=== PATIENT | male | born 1940 | race Caucasian/White ===

== ENCOUNTER 2016-10-02 07:21 | Outpatient (CLI) | payer MEDICARE, BC ==
[2016-10-02] MEDS ORDERED: REGADENOSON 0.4 MG/5 ML DISP.SYRIN IVP ONE (08:00)
== END 2016-10-02 23:59 | disposition home or self-care (01) ==
LOC: NM 07:21
PROVIDERS: ATTEND Internal Medicine Interventional Cardiology
DX: I25.10 Atherosclerotic heart disease of native coronary artery without angina pectoris (principal); Q21.0 Ventricular septal defect
CPT/HCPCS: 78452; A9502; J2785

== ENCOUNTER 2018-09-03 20:54 | Inpatient (IN) | payer MEDICARE, BC ==
[~2018-09-03] VITALS: Ht 182.9 cm; Wt 59.9 kg
[2018-09-03] MEDS ORDERED: ONDANSETRON HCL/PF 4 MG/2 ML VIAL ONE (21:08)
[2018-09-03] MEDS ORDERED: HYDROMORPHONE INJ 0.5 MG/0.5 ML SYRINGE ONE ×2 (21:08→23:52)
--- NOTE | 2018-09-03 21:09 | NUR ---
PHLEBOTOMY BEDSIDE FOR BLOOD DRAW Addendum: 09/03/18 at 2348 by EL Amendment undone in EDM - 09/03/18 at 2348 by EL REPORT GIVEN TO MS CHUNG.
[2018-09-03 21:15] LABS: BASOPHILS % (AUTO) 0.5 % (0.0-2.0); EOSINOPHILS % (AUTO) 0.6 % (0.0-6.0); HEMATOCRIT 43 % (39-51); HEMOGLOBIN 14.5 g/dL (13.5-17.5); LYMPHOCYTES # (AUTO) 0.7 /CMM (0.8-4.8); MEAN CORPUSCULAR HGB CONC 34 g/dl (31.0-36.0); MEAN CORPUSCULAR VOLUME 103 fL (80-96); MONOCYTES # (AUTO) 0.8 /CMM (0.1-1.30); MONOCYTES % (AUTO) 8.1 % (2.0-12.0); NEUTROPHILS # (AUTO) 8.1 /CMM (1.8-8.9); NEUTROPHILS % (AUTO) 83.8 % (43.0-81.0); PLATELET COUNT (AUTO) 220 /CMM (150-450); RED BLOOD CELL COUNT(AUTO) 4.16 MIL/uL (4.5-6.0); WHITE BLOOD COUNT (AUTO) 9.7 K/uL (4.3-11.0)
--- NOTE | 2018-09-03 21:15 | NUR ---
[id number] FROM HOME C/C R HIP PAIN S/P MECHANICAL FALL AT HOME. - BACK,NECK,HEAD TRAUMA.-KO.NO OBVIOUS DEFORMITY,SHORTENING NOTED.FENTANYL 50MCG GIVEN. PT AAOX3, VSS. DENIES CP, SOB, DIZZINESS, N/V @ THIS TIME. PT SEEN & EVAL'D BY DR. MARKS. MEDICATED FOR PAIN PER ERMD ORDER. PLACED ON WINDOW MAKER. FAMILY @ BS & WILL CONT TO MONITOR.
[2018-09-03 21:25] LABS: CALCIUM, SERUM 9.8 mg/dL (8.5-10.1); CARBON DIOXIDE 27 mmol/L (21-32); CHLORIDE 100 mmol/L (98-107); CREATININE 0.8 mg/dL (0.6-1.3); GLUCOSE 102 mg/dL (74-106); POTASSIUM 3.9 mmol/L (3.5-5.1); SODIUM SERUM 137 mmol/L (136-145); UREA NITROGEN, BLOOD 19 mg/dL (7-18)
[2018-09-03] MEDS ORDERED: HYDROMORPHONE 1 MG/1 ML DISP.SYRIN IV ONE (21:30)
[2018-09-03] MEDS ORDERED: ONDANSETRON HCL/PF 4 MG/2 ML VIAL IV ONE (21:30)
--- NOTE | 2018-09-03 22:22 | NUR ---
PT AAOX3, PT STS PAIN STILL 10/10 BUT ABLE TO MOVE FROM SIDE TO SIDE. DENIES CP, SOB, DIZZINESS, N/V @ THIS TIME. RR EVEN & UNLABORED. WILL CONT TO MONITOR & @ BS.
--- NOTE | 2018-09-03 23:48 | NUR ---
CALLING REPORT TO TELE NURSE.
--- NOTE | 2018-09-03 23:50 | NUR ---
REPORT GIVEN TO CHASITY MADDEN
--- NOTE | 2018-09-03 23:55 | NUR ---
DR GOMES TO SPEAK TO Gloria JEREZ NP FOR ADMISSION.
[2018-09-03] MEDS: HYDROMORPHONE 1 MG/1 ML DISP.SYRIN IV PRN (23:56)
--- NOTE | 2018-09-03 23:56 | NUR ---
PT REC'D MEDICATION ORDERED.
[2018-09-04] VITALS (7 sets, daily range): BP systolic 136–180; BP diastolic 81–111
[2018-09-04] MEDS ORDERED: HYDROMORPHONE 1 MG/1 ML DISP.SYRIN IV ONE
[2018-09-04] MEDS ORDERED: Z GUARD REMEDY 2 OZ OINT TP PRN (00:30)
[2018-09-04] MEDS ORDERED: KETOROLAC TROMETHAMINE INJ 30 MG/ML VIAL IV PRN (00:30)
[2018-09-04] MEDS ORDERED: MAGNESIUM HYDROXIDE 30 ML UDC PO PRN (00:30)
[2018-09-04] MEDS ORDERED: HYDROCODONE/APAP 5/325MG 1 EACH TABLET PO PRN (00:30)
[2018-09-04] MEDS ORDERED: ENOXAPARIN SODIUM 40 MG/0.4 ML DISP.SYRIN SQ SCH (00:30)
[2018-09-04] MEDS ORDERED: ZOLPIDEM TARTRATE 5 MG TABLET PO PRN (00:30)
[2018-09-04] MEDS ORDERED: ACETAMINOPHEN 325 MG TABLET PO PRN (00:30)
--- NOTE | 2018-09-04 00:30 | NUR ---
MS-1/COMPUTER OPERATIONS TECHNICIAN ADMISSION ASSESSMENT COMPLETE. SKIN ASSESSMENT COMPLETE. PT REFUSING PHOTOS AT THIS TIME DUE TO PAIN. PT ORIENTED TO ROOM AND CALL LIGHT USE. WILL CONTINUE TO MONITOR.
--- NOTE | 2018-09-04 01:45 | NUR ---
MS-1/UROLOGY PHYSICIAN ASSISTANT EID CATH 16 ESTONIAN PLACED VIA STERILE PROCEDURE. PT TOLERATED WELL.
[2018-09-04] MEDS: HYDROCODONE/APAP 10/325MG 1 EA TABLET PO PRN ×5 (02:03→20:23)
[2018-09-04] MEDS: HYDROMORPHONE INJ 0.5 MG/0.5 ML SYRINGE IV PRN ×4 (03:12→17:48)
--- NOTE | 2018-09-04 03:22 | NUR ---
MS-1/MAINTENANCE MECHANIC ENGINE PT STILL COMPLAINING OF RIGHT HIP PAIN 05/22. LAINEY LOPEZ CALLED NEW ORDERS RECIEVED AND CARRIED OUT.
[2018-09-04] MEDS: IV D5/ 0.9% NACL 1,000 ML IV PRN ×2 (05:28→20:23)
--- NOTE | 2018-09-04 06:15 | NUR ---
MS-1/RADIOLOGIC TECHNOLOGIST CHIEF PT NOTED WITH DRIED BLOOD AROUND THE URETHRA AND SCROTUM POST EID CATH PLACEMENT. ALSO PT IS STILL EXPERIENCING 10/10 PAIN. NO RELIEF FROM MEDICATION. LAINEY LOPEZ NOTIFIED AWAITING CALL BACK.
[2018-09-04] MEDS: NICOTINE PATCH (7MG) 7 MG PATCH.TD24 TD SCH (08:15)
--- NOTE | 2018-09-04 08:15 | NUR ---
MS RN INITIAL NOTES Patient in bed, reports right hip pain. IVF infusing, stable oxygen saturation on RA. Maintained safety, will medicate patient with pain medication. Will cont to monitor.
[2018-09-04] MEDS: methylPREDNISolone SOD SUCC 125 MG/2ML VIAL IV SCH ×2 (10:12→16:38)
[2018-09-04] MEDS: IPRATROPIUM NEB FS 0.5 MG/2.5 ML AMPUL.NEB NEB SCH ×3 (11:22→19:56)
[2018-09-04] MEDS: ALBUTEROL HALF STRENGTH 1.25 MG/3 ML VIAL.NEB NEB SCH ×3 (11:22→19:56)
[2018-09-04] MEDS: hydrALAZINE HCL IV 20 MG VIAL IV PRN ×2 (14:12→20:13)
--- NOTE | 2018-09-04 15:04 | NUR ---
TEXTED DR. FAM FOR MRI APPROVAL.
[2018-09-04] MEDS: ONDANSETRON HCL/PF 4 MG/2 ML VIAL IVP PRN (15:51)
--- NOTE | 2018-09-04 16:02 | NUR ---
Episode of emesis x1 large amount, coffee ground color. Maintained upright position, Zofran 4mg IV PRN given. Patient place on NPO status, GI to see patient for consult. Will cont to monitor.
--- NOTE | 2018-09-04 16:08 | NUR ---
RN NOTE: RECEIVED A CBC VERBAL ORDER FROM NICOLASA NOGUERA NP FOR TONIGHT AT 1800 FOR THE PATIENT. PRIMARY NURSE MADE AWARE. ORDER, NOTED AND CARRIED OUT.
[2018-09-04 16:21] LABS: BASOPHILS % (AUTO) 0.1 % (0.0-2.0); HEMATOCRIT 40 % (39-51); HEMOGLOBIN 13.4 g/dL (13.5-17.5); LYMPHOCYTES # (AUTO) 0.6 /CMM (0.8-4.8); LYMPHOCYTES % (AUTO) 5.1 % (20.0-44.0); MEAN CORPUSCULAR HGB CONC 34 g/dl (31.0-36.0); MEAN CORPUSCULAR VOLUME 103 fL (80-96); MONOCYTES # (AUTO) 0.6 /CMM (0.1-1.30); MONOCYTES % (AUTO) 4.9 % (2.0-12.0); NEUTROPHILS # (AUTO) 10.8 /CMM (1.8-8.9); NEUTROPHILS % (AUTO) 89.9 % (43.0-81.0); PLATELET COUNT (AUTO) 213 /CMM (150-450); WHITE BLOOD COUNT (AUTO) 12.1 K/uL (4.3-11.0)
[2018-09-04] MEDS: PANTOPRAZOLE 40 MG VIAL IV SCH (16:34)
[2018-09-04] MEDS ORDERED: OMEP40CA37 PO (18:23)
[2018-09-04] MEDS ORDERED: RANI150C4 PO (18:23)
[2018-09-04] MEDS ORDERED: HYDR-4354 PO (18:23)
[2018-09-04] MEDS ORDERED: SIMV20TA6 PO (18:23)
--- NOTE | 2018-09-04 19:41 | NUR ---
MS RN CLOSING NOTES Patient in bed, awake. Currently NPO status, IVF infusing, maintained at 100ml/hr. Denies nausea, vomiting resolved. Seen by by Ortho today, planned MRI spine wo contrast, pateint is aware. Maintained safety, endorsed to night RN.
--- NOTE | 2018-09-04 20:00 | NUR ---
RECEIVED PATIENT IN BED, a&o X2-3, FORGETFUL. PATIENT'S BP IS HIGH- PATIENT C/O LOT OF PAIN TO THE RIGHT HIP( S/POST FALL AT HOME).
--- NOTE | 2018-09-04 20:30 | NUR ---
HYDRALAZINE AND NORCO GIVEN PRN FOR HIGH BP AND PAIN MANAGEMENT. CONTINUE TO MONITOR
--- NOTE | 2018-09-04 22:10 | NUR ---
PATIENT PAIN LEVEL IS 4 WHICH ACCEPTABLE TO THE PATIENT GOAL LEVEL. BP IMPROVED. CONTINUE TO MONITOR
[2018-09-05] MEDS: HYDROMORPHONE INJ 0.5 MG/0.5 ML SYRINGE IV PRN ×2 (00:22→22:03)
[2018-09-05] MEDS: ONDANSETRON HCL/PF 4 MG/2 ML VIAL IVP PRN ×2 (00:23→08:19)
--- NOTE | 2018-09-05 00:25 | NUR ---
PATIENT C/O PAIN, MOANS AND HAS INTERRUPTIONS OF SLEEP, DILAUDID GIVEN ALONG WITH ZOFRAN CONTINUE TO MONITOR
--- NOTE | 2018-09-05 00:55 | NUR ---
PATIENT IS CALM AND SLEEPING
[2018-09-05] MEDS: ALBUTEROL HALF STRENGTH 1.25 MG/3 ML VIAL.NEB NEB SCH ×4 (01:30→20:04)
[2018-09-05] MEDS: IPRATROPIUM NEB FS 0.5 MG/2.5 ML AMPUL.NEB NEB SCH ×4 (01:30→20:04)
[2018-09-05] MEDS: HYDROCODONE/APAP 10/325MG 1 EA TABLET PO PRN ×2 (03:00→18:28)
[2018-09-05 04:00] VITALS: BP 140/84
[2018-09-05 04:53] VITALS: BP 140/84
[2018-09-05] MEDS: IV D5/ 0.9% NACL 1,000 ML IV PRN ×2 (05:44→18:09)
[2018-09-05 06:31] LABS: HEMATOCRIT 40 % (39-51); HEMOGLOBIN 13.4 g/dL (13.5-17.5); LYMPHOCYTES # (AUTO) 0.3 /CMM (0.8-4.8); LYMPHOCYTES % (AUTO) 2.4 % (20.0-44.0); MEAN CORPUSCULAR HGB CONC 34 g/dl (31.0-36.0); MEAN CORPUSCULAR VOLUME 102 fL (80-96); MONOCYTES # (AUTO) 0.9 /CMM (0.1-1.30); MONOCYTES % (AUTO) 7.3 % (2.0-12.0); NEUTROPHILS # (AUTO) 11.2 /CMM (1.8-8.9); NEUTROPHILS % (AUTO) 90.3 % (43.0-81.0); PLATELET COUNT (AUTO) 184 /CMM (150-450); RED BLOOD CELL COUNT(AUTO) 3.89 MIL/uL (4.5-6.0); WHITE BLOOD COUNT (AUTO) 12.4 K/uL (4.3-11.0)
[2018-09-05 06:41] LABS: CALCIUM, SERUM 9.1 mg/dL (8.5-10.1); CARBON DIOXIDE 29 mmol/L (21-32); CHLORIDE 96 mmol/L (98-107); CREATININE 0.9 mg/dL (0.6-1.3); GLUCOSE 150 mg/dL (74-106); MAGNESIUM 1.7 mg/dL (1.8-2.4); PHOSPHORUS 3.2 mg/dL (2.5-4.9); POTASSIUM 3.6 mmol/L (3.5-5.1); SODIUM SERUM 134 mmol/L (136-145); UREA NITROGEN, BLOOD 29 mg/dL (7-18)
[2018-09-05 06:42] LABS: CHOLESTEROL 94 mg/dL (<200); HDL CHOLESTEROL 50 mg/dL (40-60); LDL 42 mg/dL (0-99); TRIGLYCERIDES 49 mg/dL (30-150)
--- NOTE | 2018-09-05 07:00 | NUR ---
MS RN OPENING NOTES RECEIVED PT IN BED. MOANING AND COMPLAINING OF NAUSEA. A/OX2-3. ON ROOM AIR. NO S/SX OF RESP DISTRESS. IV IN PAPI INTACT WITH IV FLUIDS. EID CATH DRAINING CLEAR GAEL URINE. BED IN LOCKED/LOW POSITION. CALL LIGHT IN REACH. WILL CONT TO MONITOR.
[2018-09-05 08:00] VITALS: BP 122/86
[2018-09-05] MEDS: NICOTINE PATCH (7MG) 7 MG PATCH.TD24 TD SCH (08:18)
[2018-09-05] MEDS: PANTOPRAZOLE 40 MG VIAL IV SCH ×2 (08:18→16:07)
[2018-09-05] MEDS: methylPREDNISolone SOD SUCC 125 MG/2ML VIAL IV SCH ×2 (08:21→16:09)
--- NOTE | 2018-09-05 08:30 | NUR ---
MS RN NOTES PT VOMITED BLACK COLORED EMESIS. PER DR JOLLY, SEND TO LAB-GUAIAC TEST.
[2018-09-05] MEDS ORDERED: Magnesium 1GM/D5W 100ML PREMIX 100 ML IV SCH (10:53)
--- NOTE | 2018-09-05 11:00 | NUR ---
MS JUAN NOTES PER SNEHA, SHE WILL SEND SPECIMEN TO LAB. Addendum: 09/05/18 at 1954 by NICOLA BOOTH RN RE: EMESIS - BLACK COLOR
[2018-09-05] MEDS: HYDROMORPHONE 1 MG/1 ML DISP.SYRIN IV PRN ×2 (11:12→16:10)
[2018-09-05] MEDS: Magnesium 1GM/D5W 100ML PREMIX 100 ML IV SCH ×2 (11:12→13:12)
[2018-09-05 16:00] VITALS: BP_SYST 123; BP_SYST 150; BP_DIAS 62; BP_DIAS 94
--- NOTE | 2018-09-05 16:55 | NUR ---
MS RN NOTES DIMENSIONAL ENGINEER AND NURSE INTERVIEWED AND PATIENT REGARDING METAL IN PATIENTS BODY. CHECKLIST COMPLETED. PT LEFT FLOOR WITH TECHS AND AT BEDSIDE.
--- NOTE | 2018-09-05 19:00 | NUR ---
MS RN NOTES DR ARREOLA ROUNDING WITH PT. NOTIFIED OF BLACK COLORED EMESIS THIS AM. ASKED PT IF HE WOULD LIKE TO DO AN ENDOSCOPY. PT DEFERRED TO . WILL CALL . WILL FOLLOW UP.
--- NOTE | 2018-09-05 19:15 | NUR ---
MS RN NOTES REPORT GIVEN TO PM NURSE FOR LILLY. NURSE WILL FOLLOW UP WITH RE: ENDOSCOPY. PT HAS NO MORE EPISODES OF EMESIS. ALL NEEDS ATTENDED TO.
[2018-09-05 20:00] VITALS: BP 165/99
[2018-09-05] MEDS: hydrALAZINE HCL IV 20 MG VIAL IV PRN (23:43)
--- NOTE | 2018-09-06 00:05 | NUR ---
rn notes patient BP IS 173/97 HR98 . HYDRALAZINE 10MG HAS BEEN ADMINISTERED AND RECHECKED BP AFTER 20MIN AND BP WAS 168/95. ALL PRN PAIN MEDICATIONS ARE GIVEN AND PATIENT STILL COMPLAINT OF 10/10 RIGHT HIP PAIN.MERI RETANA NOTIFIED AND NO NEW ORDERS FOR NOW.
[2018-09-06] MEDS: HYDROCODONE/APAP 10/325MG 1 EA TABLET PO PRN ×2 (01:12→21:16)
[2018-09-06] MEDS: IPRATROPIUM NEB FS 0.5 MG/2.5 ML AMPUL.NEB NEB SCH ×4 (01:40→19:36)
[2018-09-06] MEDS: ALBUTEROL HALF STRENGTH 1.25 MG/3 ML VIAL.NEB NEB SCH ×4 (01:40→19:36)
[2018-09-06] MEDS: HYDROMORPHONE INJ 0.5 MG/0.5 ML SYRINGE IV PRN ×3 (03:36→16:34)
[2018-09-06 04:00] VITALS: BP 162/94
[2018-09-06] MEDS: IV D5/ 0.9% NACL 1,000 ML IV PRN ×2 (05:07→18:34)
[2018-09-06 06:32] LABS: BASOPHILS % (AUTO) 0.1 % (0.0-2.0); HEMATOCRIT 37 % (39-51); HEMOGLOBIN 12.8 g/dL (13.5-17.5); LYMPHOCYTES # (AUTO) 0.2 /CMM (0.8-4.8); LYMPHOCYTES % (AUTO) 2.9 % (20.0-44.0); MEAN CORPUSCULAR HGB CONC 35 g/dl (31.0-36.0); MEAN CORPUSCULAR VOLUME 102 fL (80-96); MONOCYTES # (AUTO) 0.6 /CMM (0.1-1.30); MONOCYTES % (AUTO) 7.9 % (2.0-12.0); NEUTROPHILS # (AUTO) 6.5 /CMM (1.8-8.9); NEUTROPHILS % (AUTO) 89.1 % (43.0-81.0); PLATELET COUNT (AUTO) 154 /CMM (150-450); RED BLOOD CELL COUNT(AUTO) 3.63 MIL/uL (4.5-6.0); WHITE BLOOD COUNT (AUTO) 7.3 K/uL (4.3-11.0)
[2018-09-06 06:39] LABS: CALCIUM, SERUM 9.1 mg/dL (8.5-10.1); CARBON DIOXIDE 28 mmol/L (21-32); CHLORIDE 100 mmol/L (98-107); CREATININE 0.8 mg/dL (0.6-1.3); GLUCOSE 119 mg/dL (74-106); POTASSIUM 3.7 mmol/L (3.5-5.1); SODIUM SERUM 136 mmol/L (136-145); UREA NITROGEN, BLOOD 25 mg/dL (7-18)
[2018-09-06 08:00] VITALS: BP 174/107
[2018-09-06] MEDS ORDERED: ANESTHESIA TRAY IN PYXIS 1 EA TRAY MC ONE (08:23)
[2018-09-06] MEDS: ONDANSETRON HCL/PF 4 MG/2 ML VIAL IVP PRN ×2 (11:45→15:27)
[2018-09-06 12:00] VITALS: BP 151/88
[2018-09-06] MEDS: PANTOPRAZOLE 40 MG VIAL IV SCH ×2 (12:03→16:34)
[2018-09-06] MEDS: methylPREDNISolone SOD SUCC 125 MG/2ML VIAL IV SCH ×2 (12:03→16:34)
[2018-09-06] MEDS: NICOTINE PATCH (7MG) 7 MG PATCH.TD24 TD SCH (12:05)
--- NOTE | 2018-09-06 13:58 | NUR ---
RN NOTE 1250: Received patient A/OX3. Verbalized he just had pain med for right hip pain, will continue to monitor. 1350: Repositioned patient for comfort but does not want to be moved much, explained benefits for complete turning q2, still wanting not to be moved much.
[2018-09-06 16:00] VITALS: BP 166/95
[2018-09-06 20:00] VITALS: BP 171/90
[2018-09-06] MEDS: hydrALAZINE HCL IV 20 MG VIAL IV PRN (20:58)
[2018-09-07] MEDS: IPRATROPIUM NEB FS 0.5 MG/2.5 ML AMPUL.NEB NEB SCH ×4 (01:55→19:45)
[2018-09-07] MEDS: ALBUTEROL HALF STRENGTH 1.25 MG/3 ML VIAL.NEB NEB SCH ×4 (01:55→19:45)
[2018-09-07 04:00] VITALS: BP 152/96
[2018-09-07] MEDS: IV D5/ 0.9% NACL 1,000 ML IV PRN ×2 (05:24→15:24)
[2018-09-07] MEDS: HYDROMORPHONE INJ 0.5 MG/0.5 ML SYRINGE IV PRN ×4 (05:25→22:34)
[2018-09-07 06:32] LABS: HEMATOCRIT 34 % (39-51); HEMOGLOBIN 11.6 g/dL (13.5-17.5); LYMPHOCYTES # (AUTO) 0.1 /CMM (0.8-4.8); LYMPHOCYTES % (AUTO) 1.7 % (20.0-44.0); MEAN CORPUSCULAR HGB CONC 35 g/dl (31.0-36.0); MEAN CORPUSCULAR VOLUME 101 fL (80-96); MONOCYTES # (AUTO) 0.4 /CMM (0.1-1.30); MONOCYTES % (AUTO) 5.3 % (2.0-12.0); NEUTROPHILS # (AUTO) 7.3 /CMM (1.8-8.9); PLATELET COUNT (AUTO) 166 /CMM (150-450); RED BLOOD CELL COUNT(AUTO) 3.35 MIL/uL (4.5-6.0); WHITE BLOOD COUNT (AUTO) 7.9 K/uL (4.3-11.0)
[2018-09-07 06:48] LABS: CALCIUM, SERUM 9.2 mg/dL (8.5-10.1); CARBON DIOXIDE 26 mmol/L (21-32); CHLORIDE 101 mmol/L (98-107); CREATININE 0.7 mg/dL (0.6-1.3); GLUCOSE 160 mg/dL (74-106); POTASSIUM 3.4 mmol/L (3.5-5.1); SODIUM SERUM 137 mmol/L (136-145); UREA NITROGEN, BLOOD 23 mg/dL (7-18)
--- NOTE | 2018-09-07 07:00 | NUR ---
MS RN NOTES RECEIVED PT IN BED, ASLEEP INTERMITTENTLY. PT COMPLAINING OF 10/10 PAIN IN HIP AREA. PT ON 2L NC SAT AT 94%. IV SITE PATENT/FLUSHED. IV FLUIDS INFUSING. HR REGULAR. LUNG SOUNDS CLEAR. F/C DRAINING GEAL CLEAR URINE. PT ON CLEAR LIQUID DIET. TOLERATING WELL. BED IN LOCKED/LOWEST POSITION. PT ORIENTED TO ENVIRONMENT WITH CALL LIGHT IN REACH. WILL ADDRESS PAIN MANAGEMENT AND CONT TO MONITOR.
[2018-09-07 08:00] VITALS: BP 128/81
[2018-09-07] MEDS: PANTOPRAZOLE 40 MG VIAL IV SCH ×2 (08:09→16:10)
[2018-09-07] MEDS: methylPREDNISolone SOD SUCC 125 MG/2ML VIAL IV SCH ×2 (08:10→16:10)
[2018-09-07] MEDS: NICOTINE PATCH (7MG) 7 MG PATCH.TD24 TD SCH (08:10)
[2018-09-07] MEDS: HYDROCODONE/APAP 10/325MG 1 EA TABLET PO PRN ×2 (08:11→15:35)
[2018-09-07] MEDS ORDERED: POTASSIUM CHLORIDE 20 MEQ POWDER PACKET PO SCH (11:00)
--- NOTE | 2018-09-07 11:00 | NUR ---
MS RN NOTES DR ACUÑA ROUNDING WITH PT. NO NEW ORDERS GIVEN.
[2018-09-07 12:00] VITALS: BP_SYST 136; BP_SYST 138; BP_DIAS 76; BP_DIAS 84
--- NOTE | 2018-09-07 14:24 | NUR ---
MS RN NOTES PT LEFT FOR MRI WITH MRI TECHS ACCOMPANYING.
[2018-09-07 16:00] VITALS: BP 138/76
--- NOTE | 2018-09-07 19:37 | NUR ---
MS RN NOTES RECEIVED PT ON BED. A/O X 4 WITH AT BEDSIDE. ON NC 2LPM NO RESPIRATORY DISTRESS NOTED. IV ACCESS AT PAPI #22 PATENT AND INTACT WITH D5NS RUNNING @ 100CC/HR. EID CATH DRAINING YELLOW URINE. HEAD OF BED ELEVATED. SIDE RAILS UP. CALL LIGHT WITHIN REACH. BED ALARM ON. WILL CONTINUE TO MONITOR PT CLOSELY.
[2018-09-07 20:00] VITALS: BP 136/86
[2018-09-08] VITALS: BP 136/86
[2018-09-08] MEDS: ALBUTEROL HALF STRENGTH 1.25 MG/3 ML VIAL.NEB NEB SCH ×4 (02:12→19:23)
[2018-09-08] MEDS: IPRATROPIUM NEB FS 0.5 MG/2.5 ML AMPUL.NEB NEB SCH ×4 (02:12→19:23)
[2018-09-08] MEDS: HYDROMORPHONE INJ 0.5 MG/0.5 ML SYRINGE IV PRN ×5 (02:48→20:14)
[2018-09-08 04:00] VITALS: BP 117/78
[2018-09-08] MEDS: IV D5/ 0.9% NACL 1,000 ML IV PRN ×2 (04:48→15:49)
--- NOTE | 2018-09-08 06:43 | NUR ---
MS RN NOTES NO ACUTE CHANGES NOTED DURING THE SHIFT. PROVIDED COMFORT AND SAFETY. DUE MEDS GIVEN. WILL ENDORSE TO THE AM NURSE FOR CONTINUITY OF CARE.
[2018-09-08 07:10] LABS: HEMATOCRIT 30 % (39-51); HEMOGLOBIN 10.2 g/dL (13.5-17.5); LYMPHOCYTES # (AUTO) 0.2 /CMM (0.8-4.8); LYMPHOCYTES % (AUTO) 1.8 % (20.0-44.0); MEAN CORPUSCULAR HGB CONC 34 g/dl (31.0-36.0); MEAN CORPUSCULAR VOLUME 102 fL (80-96); MONOCYTES # (AUTO) 0.6 /CMM (0.1-1.30); NEUTROPHILS # (AUTO) 8.8 /CMM (1.8-8.9); NEUTROPHILS % (AUTO) 92.2 % (43.0-81.0); PLATELET COUNT (AUTO) 168 /CMM (150-450); RED BLOOD CELL COUNT(AUTO) 2.92 MIL/uL (4.5-6.0); WHITE BLOOD COUNT (AUTO) 9.5 K/uL (4.3-11.0)
[2018-09-08 07:20] LABS: CALCIUM, SERUM 8.6 mg/dL (8.5-10.1); CARBON DIOXIDE 26 mmol/L (21-32); CHLORIDE 102 mmol/L (98-107); CREATININE 0.6 mg/dL (0.6-1.3); GLUCOSE 155 mg/dL (74-106); POTASSIUM 3.7 mmol/L (3.5-5.1); SODIUM SERUM 136 mmol/L (136-145); UREA NITROGEN, BLOOD 25 mg/dL (7-18)
--- NOTE | 2018-09-08 07:30 | NUR ---
MS RN OPENING NOTES RECEIVED PT LYING IN BED, WITH HOB ELEVATED, PT IS ALERT AND ORIENTED X4. PT IS ON 2L OXYGEN VIA NC, SATURATING WELL. RR EVEN AND UNLABORED, NO SOB NOTED, IV SITES ARE INTACT TO PAPI 22G, NO INFILTRATION NOTED, DRESSING KEPT CLEAN AND DRY, BED LOCKED AND LOW, SIDE RAILS UP X2, CALL LIGHT WITHIN REACH, WILL MONITOR THROUGHOUT SHIFT FOR CONTINUITY OF CARE.
[2018-09-08 08:00] VITALS: BP 156/79
[2018-09-08] MEDS: PANTOPRAZOLE 40 MG VIAL IV SCH ×2 (08:20→16:48)
[2018-09-08] MEDS: methylPREDNISolone SOD SUCC 125 MG/2ML VIAL IV SCH ×2 (08:21→16:48)
[2018-09-08] MEDS: NICOTINE PATCH (7MG) 7 MG PATCH.TD24 TD SCH (08:21)
--- NOTE | 2018-09-08 12:00 | NUR ---
MS RN NOTES DR.JONATHAN COLUNGA,ORTHO SEEN THE PT AND PLANNING TO DO NAILING ON RIGHT HIP IN AM AND ORDERED NPO MIDNIGHT.ALL THE CONSENT HAS SIGNED BY THE ,DARIEN.PT MADE AWARE.
[2018-09-08 13:52] LABS: ABG BASE EXCESS 1.5 mmol/L; ABG PCO2 33.7 mmHg (35.0-45.0); ABG PH 7.478 (7.350-7.450); ABG PO2 55.7 mmHg (75.0-100.0); AaDO2 53.7 mmHg; SITE, ABG Right Radial; VENT MODE, BG room air
--- NOTE | 2018-09-08 14:00 | NUR ---
MS RN NOTES [facility] HAS DONE AND ,RETAIL SALES [employer]ELOP[employer] MADE AWARE AND ORDERED PT SHOULD BE IN O2 2L VIA NC.PT AND FAMILY MADE AWARE.PLACED PT ON 2 L O2 VIA NC.
[2018-09-08 16:00] VITALS: BP_SYST 137; BP_SYST 144; BP_DIAS 52; BP_DIAS 92
--- NOTE | 2018-09-08 19:06 | NUR ---
MS RN CLOSING NOTES PT LYING IN BED, WITH HOB ELEVATED, PT IS ALERT AND ORIENTED X4. PT IS ON 2L OXYGEN VIA NC, SATURATING WELL. RR EVEN AND UNLABORED, NO SOB NOTED, IV SITES ARE INTACT TO PAPI 22G AND JOEY 20G, NO INFILTRATION NOTED, DRESSING KEPT CLEAN AND DRY, BED LOCKED AND LOW, SIDE RAILS UP X2, CALL LIGHT WITHIN REACH, VITAL SIGNS CHECKED AND ARE WITHIN NORMAL LIMITS, WILL ENDORSE TO EMERGENCY MEDICINE SPECIALIST NURSE FOR CONTINUITY OF CARE.
[2018-09-08] MEDS ORDERED: CT SWABBABLE VALVE TRANS SET 1 EA INFUS.SET MC ONE ×2 (19:26)
[2018-09-08] MEDS ORDERED: IV NS 0.9% 250 ML IV ONE (19:27)
[2018-09-08] MEDS ORDERED: IOHEXOL-350 100 ML VIAL IV ONE (19:27)
--- NOTE | 2018-09-08 19:40 | NUR ---
MS RN NOTE REPORT GIVEN BEDSIDE. PATIENT RECEIVED IN BED A/O X 4. CONSENT RECEIVED FOR CTA. 18 G PLACED IN LEFT AC, PATENT INTACT. PATIENT DENIES PAIN/ CHEST PAIN/ SOB/ . NO S/S OF DISTRESS NOTED PATIENT ON 2L NC SATURATING WELL. SAFETY PRECAUTIONS IN PLACE. RN WILL CONTINUE TO MONITOR AND RENDER CARE ORDERED.
[2018-09-08 20:00] VITALS: BP 129/86
--- NOTE | 2018-09-08 20:10 | NUR ---
MS RN NOTE PATIENT STARTED NEW 18 LAC ACCESS, SHEETS WERE SOILED, OFFERED TO CHANGE SHEETS, PATIENT REFUSED DUE TO PAIN.
--- NOTE | 2018-09-08 20:17 | NUR ---
MS RN NOTE PATIENT TAKEN TO CTA V/S STABLE BP 129/86 HR 87. He is a RR 18 EVEN UNLABORED.
--- NOTE | 2018-09-08 20:40 | NUR ---
MS RN NOTE PATIENT RECEIVED BACK FROM CTA, PT STABLE NO S/S OF DISTRESS, NO C/O CHEST PAIN
[2018-09-09] VITALS: BP 129/86
--- NOTE | 2018-09-09 01:12 | NUR ---
SHIPYARD PAINTER APPRENTICE NOTE PATIENT REFUSED PHOTOS DUE TO PAIN, NO ISSUES NOTED ON THE ANTERIOR PORTION OF THE BODY. PATIENT REFUSES TO TURN OR MOVE TO CHECK BACK AND SACRAL AREA
[2018-09-09] MEDS: ALBUTEROL HALF STRENGTH 1.25 MG/3 ML VIAL.NEB NEB SCH ×4 (01:27→20:26)
[2018-09-09] MEDS: IPRATROPIUM NEB FS 0.5 MG/2.5 ML AMPUL.NEB NEB SCH ×4 (01:27→20:27)
[2018-09-09] MEDS: HYDROMORPHONE INJ 0.5 MG/0.5 ML SYRINGE IV PRN ×4 (01:51→20:17)
--- NOTE | 2018-09-09 02:00 | NUR ---
MS RN NOTE PATIENT NOTED TO INFILTRATE ON LEFT UPPER ARM IV ACCESS. ACCESS REMOVED, FLUIDS RESUMED ON LAC 18G STILL INTACT AND PATIENT, OFFERED TO CHANGE AND REPOSITION PATIENT AGAIN, PATIENT REFUSED. CHANGED BLANKETS, BUT COULD NOT CHANGE UNDER PADS D/T PATIENT PAIN.
[2018-09-09 04:00] VITALS: BP 144/90
[2018-09-09] MEDS: IV D5/ 0.9% NACL 1,000 ML IV PRN (04:41)
[2018-09-09 06:27] LABS: HEMATOCRIT 32 % (39-51); HEMOGLOBIN 10.9 g/dL (13.5-17.5); LYMPHOCYTES # (AUTO) 0.2 /CMM (0.8-4.8); LYMPHOCYTES % (AUTO) 1.6 % (20.0-44.0); MEAN CORPUSCULAR HGB CONC 34 g/dl (31.0-36.0); MEAN CORPUSCULAR VOLUME 102 fL (80-96); MONOCYTES # (AUTO) 0.6 /CMM (0.1-1.30); MONOCYTES % (AUTO) 5.9 % (2.0-12.0); NEUTROPHILS # (AUTO) 10.1 /CMM (1.8-8.9); NEUTROPHILS % (AUTO) 92.5 % (43.0-81.0); PLATELET COUNT (AUTO) 178 /CMM (150-450); RED BLOOD CELL COUNT(AUTO) 3.11 MIL/uL (4.5-6.0); WHITE BLOOD COUNT (AUTO) 10.9 K/uL (4.3-11.0)
[2018-09-09 06:39] LABS: CALCIUM, SERUM 8.7 mg/dL (8.5-10.1); CARBON DIOXIDE 28 mmol/L (21-32); CHLORIDE 103 mmol/L (98-107); CREATININE 0.7 mg/dL (0.6-1.3); GLUCOSE 162 mg/dL (74-106); POTASSIUM 3.7 mmol/L (3.5-5.1); SODIUM SERUM 138 mmol/L (136-145); UREA NITROGEN, BLOOD 25 mg/dL (7-18)
[2018-09-09] MEDS ORDERED: BACITRACIN 50000 UNITS/VIAL ONE (07:08)
[2018-09-09] MEDS ORDERED: ANESTHESIA TRAY IN PYXIS 1 EA TRAY MC ONE (07:08)
--- NOTE | 2018-09-09 07:15 | NUR ---
MS RN NOTE PATIENT TAKEN INTO SURGERY, CHECK LIST WENT OVER WITH OR NURSE. REPORT GIVEN TO AM NURSE FOR LILLY
[2018-09-09] MEDS ORDERED: FENTANYL PF 100MCG/2ML AMPUL ONE (07:32)
[2018-09-09] MEDS ORDERED: SEVOFLURANE 250 ML BOTTLE IH ONE (07:33)
[2018-09-09] MEDS ORDERED: HYDROCORTISONE SOD SUCCINATE 100 MG/2 ML VIAL ONE (07:43)
[2018-09-09] MEDS ORDERED: BUPIVACAINE 0.5 % PF 150 MG/30 ML VIAL ONE (08:58)
[2018-09-09] MEDS ORDERED: HYDROMORPHONE 1 MG/1 ML DISP.SYRIN ONE (09:49)
[2018-09-09] MEDS ORDERED: SENNOSIDES 8.6 MG TABLET PO PRN (10:00)
[2018-09-09] MEDS ORDERED: IV LR 1000 ML 1,000 ML IV PRN (10:00)
[2018-09-09] MEDS ORDERED: BISACODYL SUPP (10 MG) 10 MG/SUPP.RECT SUPP.RECT RC PRN (10:00)
[2018-09-09 10:42] LABS: BASOPHILS % (AUTO) 0.1 % (0.0-2.0); EOSINOPHILS % (AUTO) 0.2 % (0.0-6.0); HEMATOCRIT 32 % (39-51); HEMOGLOBIN 10.8 g/dL (13.5-17.5); LYMPHOCYTES # (AUTO) 0.2 /CMM (0.8-4.8); LYMPHOCYTES % (AUTO) 1.4 % (20.0-44.0); MEAN CORPUSCULAR HGB CONC 34 g/dl (31.0-36.0); MEAN CORPUSCULAR VOLUME 102 fL (80-96); MONOCYTES # (AUTO) 0.6 /CMM (0.1-1.30); NEUTROPHILS # (AUTO) 13.4 /CMM (1.8-8.9); NEUTROPHILS % (AUTO) 94.3 % (43.0-81.0); PLATELET COUNT (AUTO) 181 /CMM (150-450); RED BLOOD CELL COUNT(AUTO) 3.13 MIL/uL (4.5-6.0); WHITE BLOOD COUNT (AUTO) 14.2 K/uL (4.3-11.0)
[2018-09-09 10:46] LABS: CALCIUM, SERUM 8.5 mg/dL (8.5-10.1); CARBON DIOXIDE 28 mmol/L (21-32); CHLORIDE 104 mmol/L (98-107); CREATININE 0.7 mg/dL (0.6-1.3); GLUCOSE 151 mg/dL (74-106); POTASSIUM 3.6 mmol/L (3.5-5.1); SODIUM SERUM 140 mmol/L (136-145); UREA NITROGEN, BLOOD 23 mg/dL (7-18)
[2018-09-09 10:53] LABS: BAND % (MANUAL) 5 % (0.0-5.0); LYMPHOCYTES % (MANUAL) 1 % (16-48); MONOCYTES % (MANUAL) 6 % (0-11.0); NEUTROPHILS % (MANUAL) 88 (42-76)
[2018-09-09] MEDS: DOCUSATE SODIUM 250 MG CAPSULE PO PRN (11:06)
[2018-09-09] MEDS: PANTOPRAZOLE 40 MG VIAL IV SCH ×2 (11:06→17:02)
[2018-09-09] MEDS: methylPREDNISolone SOD SUCC 125 MG/2ML VIAL IV SCH ×2 (11:06→17:02)
[2018-09-09] MEDS: NICOTINE PATCH (7MG) 7 MG PATCH.TD24 TD SCH (11:06)
[2018-09-09] MEDS: HYDROCODONE/APAP 10/325MG 1 EA TABLET PO PRN ×3 (11:07→21:45)
[2018-09-09 12:00] VITALS: BP 130/88
[2018-09-09 16:00] VITALS: BP 120/77
--- NOTE | 2018-09-09 19:30 | NUR ---
MS RN NOTE REPORT GIVEN BEDSIDE. PATIENT A/OX4. C/O PAIN 10/10. DILAUDID 1 MG GIVEN ORDERED. MOLDING LINE OPERATOR MERI NOTIFIED THAT PATIENT PAIN IS NOT MANAGED WELL WITH DILAUDID. PENDING ORDERS. PATIENT DENIES SOB/CHEST PAIN. PATIENT POST OP DRESSING CHECKED, NO S/S OF BLEEDING. RN WILL CONTINUE TO MONITOR.
[2018-09-09] MEDS ORDERED: HYDROMORPHONE 1 MG/1 ML DISP.SYRIN IV STA (20:53)
[2018-09-09] MEDS: VANCOMYCIN 1 GM in IV D5W 250ml IV SCH (21:45)
--- NOTE | 2018-09-09 22:00 | NUR ---
MS RN NOTE OFFERED TO TURN AND BATH PT, CHANGE LINENS, PATIENT REFUSED. WILLL OFFER AGAIN.
[2018-09-10] VITALS: BP 126/79
--- NOTE | 2018-09-10 00:01 | NUR ---
MS RN NOTE REPOSITIONED PATIENT FOR COMFORT.
[2018-09-10] MEDS: HYDROMORPHONE INJ 0.5 MG/0.5 ML SYRINGE IV PRN ×3 (00:06→10:17)
[2018-09-10] MEDS: IPRATROPIUM NEB FS 0.5 MG/2.5 ML AMPUL.NEB NEB SCH ×4 (01:30→19:22)
[2018-09-10] MEDS: ALBUTEROL HALF STRENGTH 1.25 MG/3 ML VIAL.NEB NEB SCH ×4 (01:30→19:22)
--- NOTE | 2018-09-10 04:00 | NUR ---
MS RN NOTE ORAL CARE GIVEN TO PATIENT, PT BRUSHED TEETH, AND USED MOUTH WASH, MOISTURIZER APPLIED TO NOSTRILS D/T DRYNESS
--- NOTE | 2018-09-10 05:00 | NUR ---
MS RN NOTE SHAVED PATIENT PER REQUEST
[2018-09-10] MEDS: HYDROCODONE/APAP 10/325MG 1 EA TABLET PO PRN ×3 (05:35→21:05)
[2018-09-10] MEDS: ENOXAPARIN SODIUM 40 MG/0.4 ML DISP.SYRIN SQ SCH (06:30)
--- NOTE | 2018-09-10 06:44 | NUR ---
MS RN NOTE PATIENT TOLERATED THE NIGHT NO S/S OF DISTRESS, RN WILL ENDORSE TO DAY POC FOR LILLY.
[2018-09-10 07:14] LABS: BASOPHILS % (AUTO) 0.1 % (0.0-2.0); EOSINOPHILS % (AUTO) 0.1 % (0.0-6.0); HEMATOCRIT 29 % (39-51); HEMOGLOBIN 9.7 g/dL (13.5-17.5); LYMPHOCYTES # (AUTO) 0.3 /CMM (0.8-4.8); LYMPHOCYTES % (AUTO) 2.7 % (20.0-44.0); MEAN CORPUSCULAR HGB CONC 34 g/dl (31.0-36.0); MEAN CORPUSCULAR VOLUME 102 fL (80-96); MONOCYTES # (AUTO) 0.8 /CMM (0.1-1.30); MONOCYTES % (AUTO) 7.8 % (2.0-12.0); NEUTROPHILS % (AUTO) 89.3 % (43.0-81.0); PLATELET COUNT (AUTO) 188 /CMM (150-450); WHITE BLOOD COUNT (AUTO) 10.1 K/uL (4.3-11.0)
--- NOTE | 2018-09-10 07:30 | NUR ---
received patient a/ox3 iv site c/d/i/p and refusing ivf ordered. patient has good oral intake of food and fluids. education provided. incision site c/d/i. 2l nasal cannula with non productive cough noted. all needs assessed and met. no sob, difficulty breathing and patient states constant pain and per rn requiring frequent pain medications. educated patient on medication safety and opoidside effects and states understanding. styles cath to gravity. safety skin aspiration precautions in place.
[2018-09-10 07:36] LABS: CALCIUM, SERUM 8.6 mg/dL (8.5-10.1); CARBON DIOXIDE 31 mmol/L (21-32); CHLORIDE 102 mmol/L (98-107); CREATININE 0.7 mg/dL (0.6-1.3); GLUCOSE 103 mg/dL (74-106); SODIUM SERUM 138 mmol/L (136-145); UREA NITROGEN, BLOOD 26 mg/dL (7-18)
[2018-09-10 08:00] VITALS: BP 112/77
[2018-09-10] MEDS: NICOTINE PATCH (7MG) 7 MG PATCH.TD24 TD SCH (08:22)
[2018-09-10] MEDS: VANCOMYCIN 1 GM in IV D5W 250ml IV SCH (08:22)
[2018-09-10] MEDS: PANTOPRAZOLE 40 MG VIAL IV SCH ×2 (08:22→17:50)
[2018-09-10] MEDS: methylPREDNISolone SOD SUCC 125 MG/2ML VIAL IV SCH (08:22)
[2018-09-10 08:52] LABS: LYMPHOCYTES % (MANUAL) 3 % (16-48); MONOCYTES % (MANUAL) 7 % (0-11.0); NEUTROPHILS % (MANUAL) 90 (42-76)
[2018-09-10] MEDS: DOCUSATE SODIUM 250 MG CAPSULE PO PRN (10:05)
[2018-09-10 16:00] VITALS: BP 133/78
--- NOTE | 2018-09-10 16:30 | NUR ---
attempted to get patient up to chair. however c/o being dizzy and too weak. bp stable no orthostatic. patient requires full assistance to sit at edge of bed. notified dov. patient educated on decreasing opiod medication and agrees. will try norco prn. patient states pain not too bad with movement more of the dizziness when moving. patient placed back in bed and stable vs.
[2018-09-10] MEDS: ONDANSETRON HCL/PF 4 MG/2 ML VIAL IVP PRN (17:52)
--- NOTE | 2018-09-10 18:51 | NUR ---
all due meds given and all needs met. patient resting comfortably. styles to gravity. iv site c/d/i/p. skin intact. mepilex on sacrum for protection. safety, skin, aspiration precautions in place and monitored throughout day. care will be endorsed to rn for remi.
[2018-09-10 20:00] VITALS: BP 149/96
[2018-09-11] MEDS: IPRATROPIUM NEB FS 0.5 MG/2.5 ML AMPUL.NEB NEB SCH ×4 (01:14→19:29)
[2018-09-11] MEDS: ALBUTEROL HALF STRENGTH 1.25 MG/3 ML VIAL.NEB NEB SCH ×4 (01:14→19:29)
[2018-09-11 04:00] VITALS: BP 156/90
[2018-09-11 07:06] LABS: BASOPHILS % (AUTO) 0.1 % (0.0-2.0); EOSINOPHILS % (AUTO) 0.1 % (0.0-6.0); HEMATOCRIT 31 % (39-51); HEMOGLOBIN 10.4 g/dL (13.5-17.5); LYMPHOCYTES # (AUTO) 0.3 /CMM (0.8-4.8); LYMPHOCYTES % (AUTO) 2.6 % (20.0-44.0); MEAN CORPUSCULAR HGB CONC 34 g/dl (31.0-36.0); MEAN CORPUSCULAR VOLUME 101 fL (80-96); MONOCYTES # (AUTO) 0.6 /CMM (0.1-1.30); MONOCYTES % (AUTO) 4.2 % (2.0-12.0); NEUTROPHILS # (AUTO) 12.4 /CMM (1.8-8.9); PLATELET COUNT (AUTO) 198 /CMM (150-450); RED BLOOD CELL COUNT(AUTO) 3.01 MIL/uL (4.5-6.0); WHITE BLOOD COUNT (AUTO) 13.3 K/uL (4.3-11.0)
--- NOTE | 2018-09-11 07:15 | NUR ---
MS RN OPENING NOTES RECEIVED PT LYING ON BED. ALERT AND ORIENTED X2, ON ROOM AIR NO RESPIRATORY DISTRESS NOTED, ON EID CATH DRAINING WELL, IV ACCESS JOEY 20G DRY, CLEAN, AND INTACT, HEAD OF BED ELEVATED, SIDE RAILS UP. CALL LIGHT WITHIN REACH. WILL CONTINUE TO MONITOR PT CLOSELY.
[2018-09-11 07:26] LABS: CALCIUM, SERUM 8.3 mg/dL (8.5-10.1); CARBON DIOXIDE 30 mmol/L (21-32); CHLORIDE 99 mmol/L (98-107); CREATININE 0.6 mg/dL (0.6-1.3); GLUCOSE 99 mg/dL (74-106); MAGNESIUM 1.7 mg/dL (1.8-2.4); PHOSPHORUS 2.3 mg/dL (2.5-4.9); POTASSIUM 3.4 mmol/L (3.5-5.1); SODIUM SERUM 135 mmol/L (136-145); UREA NITROGEN, BLOOD 20 mg/dL (7-18)
[2018-09-11] MEDS: ENOXAPARIN SODIUM 40 MG/0.4 ML DISP.SYRIN SQ SCH (07:54)
[2018-09-11 08:00] VITALS: BP 124/94
[2018-09-11] MEDS: NICOTINE PATCH (7MG) 7 MG PATCH.TD24 TD SCH (08:06)
[2018-09-11] MEDS: PANTOPRAZOLE 40 MG VIAL IV SCH ×2 (08:06→17:11)
[2018-09-11] MEDS ORDERED: methylPREDNISolone SOD SUCC 125 MG/2ML VIAL IV SCH (09:00)
[2018-09-11] MEDS ORDERED: POTASSIUM CHLORIDE 20 MEQ TAB.PRT.SR PO SCH (11:30)
[2018-09-11] MEDS: Magnesium 1GM/D5W 100ML PREMIX 100 ML IV SCH ×2 (11:35→12:40)
[2018-09-11] MEDS ORDERED: K PHOS NEUTRAL 250 MG TABLET PO ONE (12:00)
[2018-09-11] MEDS: HYDROCODONE/APAP 10/325MG 1 EA TABLET PO PRN ×2 (13:46→20:27)
[2018-09-11 16:00] VITALS: BP 128/84
[2018-09-11 16:05] VITALS: BP 128/84
[2018-09-11] MEDS: IV D5/ 0.9% NACL 1,000 ML IV PRN (18:24)
--- NOTE | 2018-09-11 18:58 | NUR ---
MS RN CLOSING NOTES PT IS LYING ON BED.ON 4 L O2 VIA NC CONTINUOUSLY,SATURATING WELL.NO SOB AND ACUTE DISTRESS NOTED.IV LINE IS INTACT.NO PAIN NOTED FOR NOW.ENDORSED TO REHEATER HELPER RN FOR LILLY.
--- NOTE | 2018-09-11 20:00 | NUR ---
RN INITIAL NOTES RECEIVED PT LYING ON BED. ALERT AND ORIENTED X2, ON ROOM AIR NO RESPIRATORY DISTRESS NOTED, ON EID CATH DRAINING WELL, IV ACCESS JOEY 20G DRY, CLEAN, AND INTACT,WITH IV FLUIDS INFUSING ORDERED. HEAD OF BED ELEVATED, SIDE RAILS UP. CALL LIGHT WITHIN REACH. WILL CONTINUE TO MONITOR PT CLOSELY.
[2018-09-11 21:00] VITALS: BP 135/84
[2018-09-12] VITALS (7 sets, daily range): BP systolic 123–168; BP diastolic 78–87
[2018-09-12] MEDS: IPRATROPIUM NEB FS 0.5 MG/2.5 ML AMPUL.NEB NEB SCH ×4 (01:39→19:55)
[2018-09-12] MEDS: ALBUTEROL HALF STRENGTH 1.25 MG/3 ML VIAL.NEB NEB SCH ×4 (01:39→19:55)
[2018-09-12] MEDS: IV D5/ 0.9% NACL 1,000 ML IV PRN ×3 (01:48→23:24)
[2018-09-12] MEDS: HYDROCODONE/APAP 10/325MG 1 EA TABLET PO PRN ×2 (01:53→06:06)
--- NOTE | 2018-09-12 07:03 | NUR ---
RN CLOSING NOTES PT IS LYING ON BED.ON 4 L O2 VIA NC CONTINUOUSLY,SATURATING WELL. NO SOB AND ACUTE DISTRESS NOTED. IV LINE IS INTACT, FLUID INFUSING ORDERED. PAIN MEDS GIVEN ORDERED. ENDORSED TO AM SHIFT RN FOR LILLY.
[2018-09-12 07:13] LABS: CALCIUM, SERUM 7.8 mg/dL (8.5-10.1); CARBON DIOXIDE 30 mmol/L (21-32); CHLORIDE 100 mmol/L (98-107); CREATININE 0.7 mg/dL (0.6-1.3); GLUCOSE 129 mg/dL (74-106); MAGNESIUM 1.9 mg/dL (1.8-2.4); POTASSIUM 3.5 mmol/L (3.5-5.1); SODIUM SERUM 136 mmol/L (136-145); UREA NITROGEN, BLOOD 19 mg/dL (7-18)
--- NOTE | 2018-09-12 07:27 | NUR ---
Nurse Notes: received report from the night nurse Sylvia Costa, patient is resting in bed, dressing intact right hip. Normal saline is running at 100 cc per hour. styles to gravity. [place] was given at 0600 by night nurse.
[2018-09-12] MEDS: ENOXAPARIN SODIUM 40 MG/0.4 ML DISP.SYRIN SQ SCH (08:40)
[2018-09-12] MEDS: PANTOPRAZOLE 40 MG VIAL IV SCH ×2 (08:44→18:31)
[2018-09-12] MEDS: NICOTINE PATCH (7MG) 7 MG PATCH.TD24 TD SCH (08:50)
[2018-09-12] MEDS: HYDROMORPHONE INJ 0.5 MG/0.5 ML SYRINGE IV PRN ×2 (12:40→16:01)
[2018-09-12] MEDS: ENSURE CLEAR 237 ML LIQUID (MIX BERRY) PO SCH ×2 (12:46→18:23)
--- NOTE | 2018-09-12 13:30 | NUR ---
Nurse Notes: Patient has no appetite for meals. came to visit, eating chocolate candy. IV is infusing continuously. Patient is too weak to get out of bed. wants patient to be discharge to SNf at [facility]. HOTEL DIRECTOR Monse Mast came to room and cancel the discharge.
--- NOTE | 2018-09-12 16:30 | NUR ---
Nurse Notes: patient was positioned in bed. Urinalysis obtained from styles earlier. Drained 800 cc clear urine. Patient is receiving dilaudid 1 mg IV for pain level 10/10. Medicated earlier in the day with [place]
[2018-09-12 17:03] LABS: APPEARANCE,URINE CLEAR (CLEAR); BILIRUBIN,URINE NEGATIVE (NEGATIVE); BLOOD, URINE TRACE-INTA Ery/uL (NEGATIVE); COLOR,URINE YELLOW (YELLOW); KETONES,URINE NEGATIVE (NEGATIVE); LEUKOCYTE ESTERASE ,URINE NEGATIVE (NEGATIVE); NITRITE, URINE NEGATIVE (NEGATIVE); PROTEIN,URINE NEGATIVE (NEGATIVE); UGLUCOSE NEGATIVE (NEGATIVE)
[2018-09-12 17:10] LABS: BACTERIA,URINE Rare /HPF (None Seen); RBC,URINE 0-2 /HPF (0-2); SQUAMOUS EPITHELIAL CELL,UR Few /HPF (None Seen); WBC,URINE 0-2 /HPF (0-3)
--- NOTE | 2018-09-12 19:35 | NUR ---
MS RN NOTE REPORT GIVEN BEDSIDE. PT IS LYING ON BED.ON 4 L O2 VIA NC CONTINUOUSLY,SATURATING WELL. NO SOB AND ACUTE DISTRESS NOTED. IV LINE IS INTACT, FLUID INFUSING ORDERED. PATIENT DENIES PAIN AT THIS TIME. RN WILL CONTINUE TO MONITOR.
[2018-09-12] MEDS ORDERED: CEFTRIAXONE 1 G in IV D5W 50 ML IV SCH (20:30)
[2018-09-12] MEDS ORDERED: AZITHROMYCIN 250 MG TABLET PO SCH (20:30)
--- NOTE | 2018-09-12 20:35 | NUR ---
MS RN NOTE PATIENT C/O NOT FEELING WELL. TEMP 99.9, TYLENOL 650 MG GIVEN PER MD ORDER.
[2018-09-12] MEDS ORDERED: CEFEPIME 2 GM in IV D5W 100 ML IV SCH (21:00)
--- NOTE | 2018-09-12 21:00 | NUR ---
MS RN NOTE PATIENT REQUESTED BLE MASSAGE, LOTION APPLIED AND MASSAGE GIVEN, PASSIVE ROM GIVEN
[2018-09-12] MEDS: CEFEPIME 2 GM in IV D5W 100 ML IV SCH (21:08)
--- NOTE | 2018-09-12 21:28 | NUR ---
MS RN NOTE OFFERED TO TURN PATIENT PATIENT REFUSED. EDUCATED PATIENT ABOUT IMPORTANCE OF TURNING, PATIENT VERBALIZES UNDERSTANDING. WILL OFFER AGAIN AT A LATER. TIME.
--- NOTE | 2018-09-12 21:57 | NUR ---
MS RN NOTE PATIENT SBP GREATER THAN 160 HYDRALAZINE GIVEN PER MD PRN ORDER. PT C/O OF CONGESTION AND SOB, RT CALLED AND AT BEDSIDE. PATIENT STATED TO RT HE FEELS FINE. O2 SATURATION AT 97%. RT EXPLAINED NEXT BREATHING TREATMENT WILL BE AT 1 AM. PATIENT HAS NO OTHER NEEDS AT THIS TIME.
[2018-09-12] MEDS: hydrALAZINE HCL IV 20 MG VIAL IV PRN (22:01)
[2018-09-13] MEDS: HYDROMORPHONE INJ 0.5 MG/0.5 ML SYRINGE IV PRN ×4 (00:18→17:38)
--- NOTE | 2018-09-13 00:30 | NUR ---
MS RN NOTE PATIENT REQUEST ANOTHER BLE MASSAGE D/T ACHY MUSCLES, MASSAGE GIVEN
[2018-09-13] MEDS: ALBUTEROL HALF STRENGTH 1.25 MG/3 ML VIAL.NEB NEB SCH ×3 (01:24→14:15)
[2018-09-13] MEDS: IPRATROPIUM NEB FS 0.5 MG/2.5 ML AMPUL.NEB NEB SCH ×3 (01:24→14:15)
--- NOTE | 2018-09-13 02:15 | NUR ---
MS RN NOTE PATIENT REQUEST ANOTHER MASSAGE. DELEGATED TO [employer] ARTISTIC DIRECTOR, AND MASSAGE GIVEN.
[2018-09-13 05:00] VITALS: BP 126/66
--- NOTE | 2018-09-13 05:00 | NUR ---
MS RN NOTE PATIENT REQUESTED ANOTHER MASSAGE, MASSAGE GIVEN, PATIENT REPOSITIONED, PASSIVE ROM GIVEN.
[2018-09-13] MEDS: ENOXAPARIN SODIUM 40 MG/0.4 ML DISP.SYRIN SQ SCH (06:19)
[2018-09-13 06:30] LABS: BASOPHILS % (AUTO) 0.1 % (0.0-2.0); EOSINOPHILS % (AUTO) 0.5 % (0.0-6.0); HEMATOCRIT 26 % (39-51); LYMPHOCYTES # (AUTO) 0.3 /CMM (0.8-4.8); LYMPHOCYTES % (AUTO) 2.1 % (20.0-44.0); MEAN CORPUSCULAR HGB CONC 34 g/dl (31.0-36.0); MEAN CORPUSCULAR VOLUME 101 fL (80-96); MONOCYTES # (AUTO) 0.4 /CMM (0.1-1.30); MONOCYTES % (AUTO) 2.9 % (2.0-12.0); NEUTROPHILS # (AUTO) 11.8 /CMM (1.8-8.9); NEUTROPHILS % (AUTO) 94.4 % (43.0-81.0); PLATELET COUNT (AUTO) 213 /CMM (150-450); RED BLOOD CELL COUNT(AUTO) 2.61 MIL/uL (4.5-6.0); WHITE BLOOD COUNT (AUTO) 12.4 K/uL (4.3-11.0)
[2018-09-13 06:45] LABS: CALCIUM, SERUM 7.5 mg/dL (8.5-10.1); CARBON DIOXIDE 27 mmol/L (21-32); CHLORIDE 100 mmol/L (98-107); CREATININE 0.5 mg/dL (0.6-1.3); GLUCOSE 120 mg/dL (74-106); MAGNESIUM 1.6 mg/dL (1.8-2.4); PHOSPHORUS 2.6 mg/dL (2.5-4.9); POTASSIUM 3.2 mmol/L (3.5-5.1); SODIUM SERUM 135 mmol/L (136-145); UREA NITROGEN, BLOOD 13 mg/dL (7-18)
--- NOTE | 2018-09-13 06:52 | NUR ---
MS RN NOTE PATIENT TOLERATED THE NIGHT WELL NO S/S OF DISTRESS. PATIENT GIVEN DILAUDID FOR PAIN, REPOSITIONED AND GIVEN ANOTHER BLE MASSAGE. NO CHEST PAIN, NO SOB/. ALL NEEDS ATTENDED. RN WILL ENDORSE TO AM FOR LILLY.
[2018-09-13 08:00] VITALS: BP 123/85
--- NOTE | 2018-09-13 08:02 | NUR ---
RN OPENING NOTES RECEIVED PT. IN BED A&OX3. BREATHING UNLABORED ON OXYGEN AT 4.5L/MIN VIA NASAL CANNULA, WITH COOL AEROSOL ON. IV FLUIDS RUNNING AT 100 ML/HR. NO S/S OF ACUTE DISTRESS. EID CATHETER HAS 200 CC OF CLEAR, AND YELLOW URINE. BED IS IN LOWEST, AND LOCKED POSITION. 2 SIDE RAILS UP, AND INSTRUCTED PT. TO USE CALL LIGHT FOR ASSISTANCE. ALL NEEDS MET. WILL CONTINUE TO ASSESS AND MONITOR.
[2018-09-13] MEDS: CEFEPIME 2 GM in IV D5W 100 ML IV SCH (08:30)
[2018-09-13] MEDS: PANTOPRAZOLE 40 MG VIAL IV SCH ×2 (08:30→17:17)
[2018-09-13] MEDS: NICOTINE PATCH (7MG) 7 MG PATCH.TD24 TD SCH (08:30)
[2018-09-13] MEDS: ENSURE CLEAR 237 ML LIQUID (MIX BERRY) PO SCH ×3 (08:31→17:17)
[2018-09-13] MEDS: IV D5/ 0.9% NACL 1,000 ML IV PRN (08:31)
[2018-09-13] MEDS: Magnesium 1GM/D5W 100ML PREMIX 100 ML IV SCH ×2 (10:44→11:44)
[2018-09-13] MEDS: POTASSIUM CHLORIDE 20 MEQ TAB.PRT.SR PO SCH ×2 (11:40→13:00)
--- NOTE | 2018-09-13 13:50 | NUR ---
EID CATHETER WAS REMOVED WITHOUT COMPLICATIONS. 650 CC OF CLEAR, AND YELLOW URINE WAS REMOVED FROM EID. A URINAL WAS PLACED WITHIN REACH.
--- NOTE | 2018-09-13 16:11 | NUR ---
PT. VOIDED ONCE, ON PAD, AND HAD ONE BOWEL MOVEMENT.
--- NOTE | 2018-09-13 18:15 | NUR ---
PUBLIC RELATIONS CONSULTANT NOTES PT. WAS DISCHARGED IN STABLE CONDITION. DISCHARGE WAS REPORTED VIA PHONE TO LOREN NURSE CLINICAL APPEALS AUDITOR AT [facility]. DISCHARGE INSTRUCTIONS, AND EDUCATION WAS PROVIDED TO PT. AND PT. VERBALIZED UNDERSTANDING. BELONGINGS LIST WAS CHECKED AND SIGNED. DISCHARGE PAPERS WERE SIGNED. IV AND ID BAND WAS REMOVED. DILAUDID 1 MG IV PUSH WAS GIVEN BEFORE DISCHARGE. PT.'S LEFT WITH PT. ALONG SIDE, AND TOOK BELONGINGS. PT. WAS TRANSFERRED BY AMBULANCE, ON OXYGEN AT 2L/MIN VIA NASAL CANNULA. DISCHARGE REPORT, AND PACKET WAS GIVEN TO AMBULANCE CREW.
== END 2018-09-13 18:12 | DRG 480 ==
LOC: ER 20:57 → MEDSG1 23:27
PROVIDERS: ADMIT Nurse Practitioner Acute Care; ATTEND Family Medicine
PROC: 0DB78ZX Excision of Stomach, Pylorus, Via Natural or Artificial Opening Endoscopic, Diagnostic (ICD-10-PCS; 2018-09-06)
PROC: 0QS606Z Reposition Right Upper Femur with Intramedullary Internal Fixation Device, Open Approach (ICD-10-PCS; principal; 2018-09-09)
DX: M80.851A Other osteoporosis with current pathological fracture, right femur, initial encounter for fracture (principal); E43 Unspecified severe protein-calorie malnutrition; K29.71 Gastritis, unspecified, with bleeding; J15.6 Pneumonia due to other Gram-negative bacteria; J15.9 Unspecified bacterial pneumonia; N17.0 Acute kidney failure with tubular necrosis; D68.59 Other primary thrombophilia; Z68.1 Body mass index [BMI] 19.9 or less, adult; J44.0 Chronic obstructive pulmonary disease with (acute) lower respiratory infection; W01.0XXA Fall on same level from slipping, tripping and stumbling without subsequent striking against object, initial encounter; Y93.9 Activity, unspecified; Y92.009 Unspecified place in unspecified non-institutional (private) residence as the place of occurrence of the external cause; I25.10 Atherosclerotic heart disease of native coronary artery without angina pectoris; I16.0 Hypertensive urgency; F17.210 Nicotine dependence, cigarettes, uncomplicated; D53.9 Nutritional anemia, unspecified; Z95.1 Presence of aortocoronary bypass graft; R29.6 Repeated falls; K21.0 Gastro-esophageal reflux disease with esophagitis; K44.9 Diaphragmatic hernia without obstruction or gangrene; M62.50 Muscle wasting and atrophy, not elsewhere classified, unspecified site; Z86.11 Personal history of tuberculosis; Z86.79 Personal history of other diseases of the circulatory system; M41.86 Other forms of scoliosis, lumbar region; E83.42 Hypomagnesemia; M51.36 Other intervertebral disc degeneration, lumbar region; G89.29 Other chronic pain
CPT/HCPCS: 36415; 36600; 71045-TC; 72125-TC; 72128-TC; 72131-TC; 72146-TC; 73501; 73502; 73700-TC; 73721-TC; 80048-TC; 80061-TC; 81000-TC; 82040-TC; 82962-TC; 83735-TC; 84100-TC; 84484-TC; 85025-TC; 85378-TC; 85610-TC; 85730-TC; 86850-TC; 87081-TC; 88305-TC; 88313-TC; 88342; 93307-TC; 93970-TC; 94760-TC; 94799-TC; 97110-TC; 97112-TC; 97116-TC; 97530-TC; A6209; A6402; C1713; C9113; G0378; J0360; J0690; J0692; J0696; J1100; J1170; J1650; J1720; J1885; J2405; J2704; J2930; J3010; J3370; J3475; J3490; J7030; J7042; J7050; J7060; J7070; J7120; Q9967